=== PATIENT | male | born 1980 | race Two or more races ===

== ENCOUNTER 2024-02-19 | Emergency (ER) | payer MEDICAID, SELFPAY ==
[2024-02-19 00:08] VITALS: BP 144/91; PULSE 98; RESP 18; TEMP 37.1; O2SAT 99
--- NOTE | 2024-02-19 00:09 | XR_ITS ---
Examination: Duplex scan of the lower extremity, unilateral left Date and time of exam: February 19, 2024 0041 hrs. Indications: Left leg pain beginning 3 days ago Technique: Duplex scan of the extremity veins using B-mode/grayscale imaging and Doppler spectral analysis and color flow Attention is directed to internal echogenicity, compression and augmentation involving these veins, color flow assessment, spectral analysis Findings: Major deep venous structures in the extremity demonstrate normal course and caliber. There is no evidence of deep vein thrombosis. Normal color flow and spectral analysis Impression: Negative for DVT..
--- NOTE | 2024-02-19 00:11 | PD.EDEXREM ---
ED Extremity Problem RME/HPI General Chief complaint: General Adult/Misc Complain Stated complaint: LEFT LEG PAIN Time Seen by Provider: 02/19/24 00:09 Arrival date/time: 02/19/24 00:00 43M with history of HTN and SVT (no meds) presents to ED with several days of L leg pain w/o fall/trauma. Patient denies CP and SOB. Limitations: no limitations Related Data Home Medications ?Medication ?Instructions ?Recorded ?Confirmed No Known Home Medications 04/01/21 04/01/21 Allergies Allergy/AdvReac Type Severity Reaction Status Date / Time No Known Allergies Allergy Verified 03/17/23 10:47 Review of Systems Review of Systems Systems Reviewed: All systems reviewed, normal except as documented Constitutional Constitutional: Reports system reviewed and no additional complaints, except as documented, Denies fever(s) and Denies headache(s) ENT Ears, Nose, Mouth, and Throat: Denies disequilibrium and Denies headache(s) Cardiovascular Cardiovascular: Reports system reviewed and no additional complaints, except as documented, Denies chest pain and Denies dyspnea Respiratory Respiratory: Reports system reviewed and no additional complaints, except as documented, Denies cough and Denies dyspnea Gastrointestinal Gastrointestinal: Reports system reviewed and no additional complaints, except as documented, Denies abdominal pain, Denies nausea and Denies vomiting Musculoskeletal Musculoskeletal: Reports as per HPI, Reports arthralgias and Reports radiating pain into limb Neurologic Neurologic: Reports system reviewed and no additional complaints, except as documented, Denies confusion, Denies disequilibrium and Denies headache(s) Psychiatric Psychiatric: Denies confusion Past Medical History Past Medical History CARDIAC: Positive Cardiac Disorders (SVT); Negative Congestive Heart Failure RESPIRATORY: Positive Asthma; Negative Chronic Obstructive Pulmonary Disease (COPD) GASTROINTESTINAL: Positive Gastrointestinal Disorders and Esophageal Varices GENITOURINARY: Negative Renal Disease ENDOCRINE: Negative Diabetes Mellitus Type 1 or Diabetes Mellitus Type 2 Surgical History SURGICAL: Positive Cardiac Surgery (ABLASION) Social History SMOKING STATUS: Never smoker ED Exam General Limitations: Present no limitations General appearance: Present alert and in no apparent distress Head Head exam: Present atraumatic Eye Eye exam: Present normal appearance, PERRL and EOMI ENT ENT exam: Present normal exam, normal oropharynx and mucous membranes moist Neck Neck exam: Present normal inspection, full ROM and trachea midline Chest Chest inspection: Present normal inspection and symmetric chest wall rise Respiratory Respiratory exam: Present normal lung sounds bilaterally Cardiovascular Cardiovascular exam: Present regular rate, normal rhythm and normal heart sounds Abdominal Exam Abdominal exam: Present soft and normal bowel sounds Extremities Exam Extremities exam: Present normal inspection and full ROM Back Exam Back exam: Present normal inspection and full ROM Neurological Exam Neurological exam: Present alert, oriented X3 and CN II-XII intact Psychiatric Psychiatric exam: Present normal affect and normal mood Skin Skin exam: Present warm, dry, intact and normal color Course Quality Measures none Orders Category Date Time Status US venous doppler LE LT Stat Exams 02/19/24 00:09 Taken Gabapentin [Neurontin] Med 02/19/24 03:00 Discontinued 600 mg PO X1 ONE Ketorolac Inj [Toradol Inj] Med 02/19/24 03:00 Discontinued 60 mg IM X1 ONE Vital Signs Vital signs: Vital Signs Temperature 98.7 F 02/19/24 00:08 Pulse Rate 98 02/19/24 00:08 Respiratory Rate 18 02/19/24 00:08 Blood Pressure 144/91 H 02/19/24 00:08 Pulse Oximetry (%) 99 02/19/24 00:08 Oxygen Delivery Method Room Air 02/19/24 00:08 O2 at 99% on RA and WNLs Extremity Problem MDM Narrative MDM Narrative:: 43M with history of HTN and SVT (no meds) presents to ED with several days of L leg pain w/o fall/trauma. Patient denies CP and SOB. Physical exam reveals no obvious swelling of LLE. Skin is not cold. Distal pulses present. Patient has many scars/scratches on all extremities that patient states are from his dogs. No open wound or area of redness. Clear ENT and lungs. Patient is afebrile, calm, and alert. US no DVT. Meds improved symptoms. Likely sciatica. Patient data External records reviewed:: [facility] previous records Clinical information provided by:: patient Social determinants that could affect healthcare access:: none Patient has the following chronic illnesses:: HTN and SVT How is presenting disease/condition affected by chronic disease/condition?: uneffected by Evaluation data The following diagnostics were reviewed and interpreted by me:: radiology exam(s) Lab and/or radiology exams considered but not ordered:: ordered Interpretation Summary: above Medications / Prescriptions Medications or Prescriptions considered but not ordered:: ordered Medication administrations:: Medication Administration History Discontinued Medications Gabapentin (Gabapentin 300 Mg Capsule) 600 mg PO X1 ONE Stop: 02/19/24 03:01 Last Admin: 02/19/24 03:19 Dose: 600 mg Documented By: DAVID Ketorolac Tromethamine (Ketorolac Inj 60 Mg/2 Ml Vial) 60 mg IM X1 ONE Stop: 02/19/24 03:01 Last Admin: 02/19/24 03:19 Dose: 60 mg Documented By: DAVID above Consultations Consultation(s) initiated? (list below): No Diagnosis Extremity Problem Differential Diagnosis: herpes zoster, gout, cellulitis, superficial thrombophlebitis, deep venous thrombosis of upper extremity, lower extremity edema and deep vein thrombosis of lower extremity Most likely diagnosis given after review of the tests above:: sciatica Admission Indicated Admission indicated?: not indicated Admission Request Was there a request for admission?: No Disposition Plan Disposition Plan: Discharge Discharge Attestation Discharge Attestation: The patient and all family members were given an opportunity to ask questions and understood the discharge instructions. Discharge instructions specifically effects, indications for sooner follow up or return to the emergency department, and the expected course of current diagnosis. Patient condition: Stable Discharge Plan Plan Patient Disposition: HOME (Self Care) Disposition Comment: Stable Prescriptions/Referrals Prescriptions/Med Rec: No Action No Known Home Medications Referrals: Temporary Provider,ED [Primary Care Provider] - In 1 week Problem List Clinical Impression: Sciatica Patient/Caregiver Discharge Instructions Education Materials: ED Sciatica Additional Instructions: Please follow-up with PCP within 24-48 hours and return immediately if symptoms worsen. If problem persists, recommend outpatient PT and/or MRI follow-up. In the meantime, rest, use ice/heat, and/or compression. Print Language: Kazakh Stand Alone Forms: Patient Portal Info Letter PATI/LUCIA Supervising Physician PATI/LUCIA Supervising Physician: Dr. Vasquez
[2024-02-19 03:03] VITALS: BMI 31.8
[2024-02-19] MEDS: KETOROLAC INJ 60 MG/2 ML VIAL IM (03:19)
[2024-02-19] MEDS: GABAPENTIN 300 MG CAPSULE 600 MG PO (03:19)
--- NOTE | 2024-02-19 04:35 | PRELIM_ITS ---
Left lower extremity venous Doppler ultrasound. February 19, 2024 0041 hours Clinical history: Rule o ut deep vein thrombosis. Technique: Duplex scan of the left lower extremity deep venous systems was p erformed utilizing 2D grayscale imaging, Doppler spectral analysis and color flow Doppler and with co mpression. Comparison: None.Findings:Pantoja scale, color flow and spectral Doppler evaluation of the le ft lower extremity deep veins was performed.The common femoral, superficial femoral and popliteal vei ns are patent and compressible. Normal respiratory variation and augmentation are noted. The posterio r tibial and peroneal veins are patent to the extent visualized. There is no evidence of occlusive or nonocclusive thrombus. The great saphenous vein is patent and compressible at the level of the saphe nofemoral junction. Impression:No sonographic evidence of deep venous thrombosis in the left lower ex tremity. Report Electronically Signed By: Victor Hugo Stephens 02/19/2024 4:34:56 AM [EST]
== END 2024-02-19 04:41 | disposition home or self-care (01) ==
LOC: SERX 06:57
PROVIDERS: Emergency Provider Emergency Medicine; PCP Family Medicine
DX: M54.32 Sciatica, left side (principal)
CPT/HCPCS: 93971; 96372; 99284; J1885; A9270

== ENCOUNTER 2024-08-07 20:26 | Emergency (ER) | payer MEDICAID, SELFPAY ==
[2024-08-07 20:28] VITALS: BMI 33.2
--- NOTE | 2024-08-07 20:31 | EKG_ITS ---
[facility] Test Date: 2024-08-07 Pat Name: YOVANI PARKINSON Department: Room: - Gender: Male [employer]: : 1980 Requested By: ED Temporary Provider Order Number: [id number] Reading MD: ED Temporary Provider Measurements Intervals [place] Rate: 77 P: 66 MO: 174 QRS: 38 QRSD: 95 T: 44 QT: 381 QTc: 433 Interpretive Statements SINUS RHYTHM POSSIBLE LEFT ATRIAL ENLARGEMENT [-0.1mV P-WAVE IN V1/V2] Compared to ECG 03/17/2023 11:33:06 Myocardial infarct finding no longer present /store/[id number]/[id number].pdf
--- NOTE | 2024-08-07 20:39 | PD.EDCHEST ---
ED Chest Pain RME/HPI General Chief Complaint: Chest Pain Stated Complaint: CHEST THIGHTNESS, PALPITATIONS Time Seen by Provider: 08/07/24 20:34 Arrival date/time: 08/07/24 20:26 RME / HPI RME / HPI narrative: Dr. Vasquez?s Main ED Evaluation: 43yo male presents to the ED for complaints of dizziness, palpitations, and chest heaviness. 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 He states he developed palpitations and chest heaviness that initially subsided, but returned, so he came in for evaluation. Patient drank water and took aspirin without any alleviation of symptoms. Patient denies any shortness of breath, cough, fever, chills or any other associated symptoms. NKA. Patient reports having an ablation in the past due to having recurrent episodes of SVT. Related Data Home Medications ?Medication ?Instructions ?Recorded ?Confirmed No Known Home Medications 04/01/21 04/01/21 Allergies Allergy/AdvReac Type Severity Reaction Status Date / Time No Known Allergies Allergy Verified 08/07/24 20:28 Review of Systems Review of Systems Systems Reviewed: All systems reviewed, normal except as documented Past Medical History Past Medical History CARDIAC: Positive Cardiac Disorders (SVT); Negative Congestive Heart Failure RESPIRATORY: Positive Asthma; Negative Chronic Obstructive Pulmonary Disease (COPD) GASTROINTESTINAL: Positive Gastrointestinal Disorders and Esophageal Varices GENITOURINARY: Negative Renal Disease ENDOCRINE: Negative Diabetes Mellitus Type 1 or Diabetes Mellitus Type 2 Surgical History SURGICAL: Positive Cardiac Surgery (ABLASION) Social History SMOKING STATUS: Former smoker ED Exam Narrative Physical exam: GENERAL APPEARANCE: alert and oriented x 4, well-developed, well-nourished, no acute distress VITALS: All vitals were reviewed and the pulse ox is % on room air, which is normal according to my interpretation. HEENT: Normocephalic, atraumatic; pupils equal, round, reactive to light; EOMI; mucous membranes pink, moist; oropharynx clear NECK: Supple LUNGS: CTABL; no wheezes, no rales, no rhonchi HEART: Regular rate, regular rhythm; normal S1, S2; no murmurs ABDOMEN: non distended; normal BS; soft, no tenderness, no guarding, no rebound; no masses, no organomegaly, no hernia BACK: no CVA tenderness EXTREMITIES: atraumatic; no edema NEUROLOGIC: awake; alert and oriented x4; cranial nerves II-XII grossly intact; no focal sensory or motor deficits PSYCHIATRIC: appropriate mood and affect SKIN: warm, dry, normal color; no rashes Course Course Course Narrative: CXR is ordered for determining the etiology of chest pain. Quality Measures none Orders Category Date Time Status Parenting Skills Instructor STAT Care 08/07/24 20:40 Completed Continuous Pulse Oximetry ONCE Care 08/07/24 20:40 Completed EKG (ED ONLY) *Do not use* NOW Care 08/07/24 20:31 Completed Insert IV STAT Care 08/07/24 20:40 Completed EKG (ED Only) Stat Exams 08/07/24 20:31 Draft XR chest 1V portable Stat Exams 08/07/24 20:40 Completed B-Type Natriuretic Peptide Stat Lab 08/07/24 21:04 Completed CBC Stat Lab 08/07/24 21:04 Completed Comprehensive Metabolic Panel Stat Lab 08/07/24 21:04 Completed Drug Screen,Urine Stat Lab 08/07/24 21:04 Completed Magnesium Stat Lab 08/07/24 21:04 Completed Prothrombin Time with INR Stat Lab 08/07/24 21:04 Completed Troponin I Stat Lab 08/07/24 21:04 Completed Urinalysis, C/S if Indicated Stat Lab 08/07/24 21:04 Completed Sodium Chloride 0.9% 1000 ml [Ns] 1,000 ml Med 08/07/24 20:40 Discontinued IV 999 mls/hr Vital Signs Vital signs: Vital Signs Temperature 98.6 F 08/07/24 20:51 Pulse Rate 76 08/07/24 20:51 Respiratory Rate 14 08/07/24 20:51 Blood Pressure 144/97 H 08/07/24 20:51 Pulse Oximetry (%) 99 08/07/24 20:51 Oxygen Delivery Method Room Air 08/07/24 20:51 Chest Pain MDM Narrative MDM Narrative:: Scribe Attestation: 08/07/24 Chantal Anton am scribing for and in the presence of Dr. Vasquez. Patient data External records reviewed:: [facility] previous records (Per chart review, patient was seen here on 04/01/21 for palpitations.) Clinical information provided by:: patient Social determinants that could affect healthcare access:: none Patient has the following chronic illnesses:: asthma How is presenting disease/condition affected by chronic disease/condition?: uneffected by Evaluation data The following diagnostics were reviewed and interpreted by me:: lab results, radiology exam(s) and EKG tracing(s) Lab and/or radiology exams considered but not ordered:: none Interpretation Summary: CBC is normal, PT and INR are normal, CMP is normal, Troponin is normal, BNP is normal, UA is unremarkable, UDS is negative, according to my interpretation. EKG done at 2040, NSR, rate of 77, normal axis, no ectopy, no acute ischemia, according to my interpretation. --------- [facility] Report Signed Patient: YOVANI PARKINSON [facility]. Record#: [id number] Birthdate: 1980 Age/Sex: 43 / M Location: [facility] Attending Dr: Ordering Physician: Nitish Vasquez MD Date of Service: 08/07/24 Procedure(s): XR chest 1V portable Accession Number(s): [id number] cc: Javy Guerrero MD; Micheal Nicholas MD; Nitish Vasquez MD~ Examination: AP chest single view TECHNIQUE: AP portable chest single view Date and time: August 07, 20242113 hours Comparison March 17, 2023. INDICATIONS: Dizziness cardiac palpitations chest heaviness today FINDINGS: Normal heart size. Lungs are clear. The osseous structures are intact IMPRESSION: No active disease Dictated By: Micheal Nicholas MD Signed By: <Electronically signed by Micheal Nicholas MD in OV> 08/07/242121 Medications / Prescriptions Medications or Prescriptions considered but not ordered:: none Medication administrations:: Medication Administration History Discontinued Medications Sodium Chloride (Ns) 1,000 mls @ 999 mls/hr IV .Q1H1M ONE Stop: 08/07/24 21:40 Last Infusion: 08/07/24 22:01 Dose: Infused Documented By: Admin: 08/07/24 21:00 Dose: 999 mls/hr Documented By: EF see above Consultations Consultation(s) initiated? (list below): No Diagnosis Chest Pain Differential Diagnosis: other (SVT, rapid aFib, PAT, Vtach with a pulse) Most likely diagnosis given after review of the tests above:: Palpitations Admission Indicated Admission indicated?: not indicated Admission Request Was there a request for admission?: No Disposition Plan Disposition Plan: Discharge Discharge Attestation Discharge Attestation: The patient and all family members were given an opportunity to ask questions and understood the discharge instructions. Discharge instructions specifically effects, indications for sooner follow up or return to the emergency department, and the expected course of current diagnosis. Patient condition: Stable Discharge Plan Plan Patient Disposition: HOME (Self Care) Discharge Disposition comment: Stable for discharge Patient condition on transfer: Stable Prescriptions/Referrals Prescriptions/Med Rec: No Action No Known Home Medications Referrals: Toni Spears MD [Physician] - In 1 week Javy Guerrero MD [Primary Care Provider] - In 1 week Problem List Clinical Impression: Heart palpitations Patient/Caregiver Discharge Instructions Discharge Activity: activity as tolerated Education Materials: ED Palpitations Additional Instructions: Please return to the emergency department if you have any worsening or any further medical problems. Otherwise you should follow-up with your primary care doctor within the next several days. I have given you the contact information for Dr. Spears. He is our television announcer who is on-call for the ER today. Please give his office a call and make a follow-up appointment with him. Print Language: Jamaican Stand Alone Forms: Martha Award Info., Patient Portal Info Letter
[2024-08-07 20:40] VITALS: PULSE 112
--- NOTE | 2024-08-07 20:40 | XR_ITS ---
Examination: AP chest single view TECHNIQUE: AP portable chest single view Date and time: August 07, 2024 2114 hours Comparison March 17, 2023. INDICATIONS: Dizziness cardiac palpitations chest heaviness today FINDINGS: Normal heart size. Lungs are clear. The osseous structures are intact IMPRESSION: No active disease
[2024-08-07 20:51] VITALS: BP 144/97; PULSE 76; PULSE 78; RESP 14; TEMP 37; O2SAT 99
[2024-08-07] MEDS: SODIUM CHLORIDE 0.9% 1000 ML 1,000 ML 999 ML IV (21:00)
[2024-08-07 21:10] LABS: Basophils # (Auto) 0.1 Thou/mm3 (0.0-0.2); Basophils % (Auto) 1 % (0-2.5); Eosinophils # (Auto) 0.2 Thou/mm3 (0.0-0.5); Eosinophils % (Auto) 2 % (0-10); Hemoglobin 15.6 g/dL (13.5-16.0); Immature Granulocytes % (Auto) 0 % (0-0); Immature Granulocytes Auto 0.03 Thou/mm3 (0.00-0.00); Lymphocytes # (Auto) 3.1 Thou/mm3 (1.0-4.8); Lymphocytes % (Auto) 33 % (10-50); Mean Corpuscular HGB Conc 35.5 g/dl (31.0-37.0); Mean Corpuscular Hemoglobin 29.2 pg (25.0-35.0); Mean Corpuscular Volume 82 fL (80-100); Monocytes # (Auto) 0.6 Thou/mm3 (0.0-0.8); Monocytes % (Auto) 7 % (0-12); Neutrophils # (Auto) 5.5 Thou/mm3 (1.8-7.7); Neutrophils % (Auto) 58 % (37-80); Nucleated Red Blood Cell % 0 /100 WBC (0); Platelet Count 261 Thou/mm3 (140-440); RDW Standard Deviation 36.1 fL (35.1-43.9); Red Blood Count 5.34 Miln/mm3 (4.50-5.90); White Blood Count 9.4 Thou/mm3 (3.8-10.6)
[2024-08-07 21:11] LABS: Collection Type, Urine Clean Catch; Squamous Epithelial Cell,Urine 0 /hpf (0-5)
[2024-08-07 21:14] LABS: Bilirubin,Urine Negative (Negative); Blood,Urine Negative (Negative); Clarity,Urine Clear (Clear/Hazy); Color,Urine Lt-Yellow (Lt Yel-Yel); Culture Indicated,Urine Not Indicated; Glucose, Urine Negative (Negative); Ketones,Urine 1+ (Negative); Leukocyte Esterase,Urine Negative (Negative); Nitrite,Urine Negative (Negative); Protein,Urine Trace (Neg - Trace); RBC,Urine 3 /hpf (0-3); Specific Gravity,Urine 1.028 (1.001-1.035); Urobilinogen,Urine Negative mg/dL (0.0-1.0); WBC,Urine 1 /hpf (0-5)
[2024-08-07 21:27] LABS: Amphetamine/Methamp Scrn,U Negative (Negative); Barbiturate Screen,Urine Negative (Negative); Benzodiazepines Screen,Urine Negative (Negative); Benzoylecgonine Screen, Ur Negative (Negative); Fentanyl Screen,Urine Negative (Negative); Opiate Screen,Urine Negative (Negative); Prothrombin Time 10.9 Seconds (9.0-12.2); THC Screen,Urine Negative (Negative)
[2024-08-07 21:31] LABS: Alanine Aminotransferase 24 U/L (10-49); Albumin, Serum 4.6 gm/dL (3.5-5.0); Albumin/Globulin Ratio 1.6 (1.2-2.2); Alkaline Phosphatase 87 U/L (46-116); Anion Gap 5 (7-16); Aspartate Amino Transferase 25 U/L (0-34); BUN/Creatinine Ratio 11 Ratio (12-20); Bilirubin,Total 0.5 mg/dL (0.3-1.2); Blood Urea Nitrogen 13 mg/dL (9-23); Calcium 9.5 mg/dL (8.3-10.6); Calcium (Corrected) 9.5 mg/dL (8.5-10.1); Carbon Dioxide 28.4 mMol/L (20.0-31.0); Chloride 102 mMol/L (98-107); Creatinine (Component) 1.2 mg/dL (0.6-1.3); Estimated Creatinine Clearance 102.2 mL/min (>60); Globulin 2.9 gm/dL (2.3-3.5); Glucose 92 mg/dL (74-106); Magnesium 2.3 mg/dL (1.6-2.6); Osmolality,Calculated 270 (275-295); Potassium 4.1 mMol/L (3.4-5.1); Sodium 135 mMol/L (136-145); Total Protein 7.5 gm/dL (5.7-8.2); Troponin I < 0.020 ng/mL (0.0-0.045); eGFR > 60 See Note
[2024-08-07 22:12] LABS: B-Type Natriuretic Peptide 25 pg/mL (0-100)
[2024-08-07 22:31] VITALS: BP 130/83; PULSE 97; RESP 17; O2SAT 97
== END 2024-08-07 22:33 | disposition home or self-care (01) ==
PROVIDERS: Emergency Provider Emergency Medicine; PCP Family Medicine
DX: R00.2 Palpitations (principal); R42 Dizziness and giddiness
CPT/HCPCS: 36415; 71045; 80053; 80307; 81001; 83735; 83880; 84484; 85025; 85610; 93005; 96360; 99284; J7030

== ENCOUNTER 2025-03-10 21:00 | Emergency (ER) | payer MEDICAID, SELFPAY ==
[2025-03-10 21:01] VITALS: BMI 29.8
[2025-03-10 21:02] VITALS: BP 125/80; PULSE 87; RESP 18; TEMP 36.9; O2SAT 98
--- NOTE | 2025-03-10 22:20 | PD.EDSKIN ---
ED Skin Abcess FB-RME/HPI General Chief complaint: Extremity Injury, Lower Stated complaint: POSS INFECTION L LOWER LEG Time Seen by Provider: 03/10/25 22:10 Arrival date/time: 03/10/25 21:00 44M with asthma and cardiac ablation presents to ED with several days of L lower leg burning pain. Patient denies itching, fall/trauma, and obvious insect bite/puncture wound/skin injury. Limitations: no limitations Related Data Previous Rx's ?Medication ?Instructions ?Recorded cefadroxil 1 gram tablet 1,000 mg PO QDAY 7 days #7 tabs 03/10/25 Allergies Allergy/AdvReac Type Severity Reaction Status Date / Time No Known Allergies Allergy Verified 08/07/24 20:28 Review of Systems Review of Systems Systems Reviewed: All systems reviewed, normal except as documented Integumentary/Breasts Skin/Breast: Reports as per HPI, Reports rash and Reports skin pain Past Medical History Past Medical History CARDIAC: Positive Cardiac Disorders (SVT); Negative Congestive Heart Failure RESPIRATORY: Positive Asthma; Negative Chronic Obstructive Pulmonary Disease (COPD) GASTROINTESTINAL: Positive Gastrointestinal Disorders and Esophageal Varices GENITOURINARY: Negative Renal Disease ENDOCRINE: Negative Diabetes Mellitus Type 1 or Diabetes Mellitus Type 2 Surgical History SURGICAL: Positive Cardiac Surgery (ABLASION) Social History SMOKING STATUS: Never smoker ED Exam General Limitations: Present no limitations General appearance: Present alert and in no apparent distress Head Head exam: Present atraumatic Neck Neck exam: Present normal inspection, full ROM and trachea midline Chest Chest inspection: Present normal inspection and symmetric chest wall rise Extremities Exam Extremities exam: Present full ROM Expanded Lower Extremity Exam Lower leg exam: Present full ROM (L), tenderness, swelling and erythema Neurological Exam Neurological exam: Present alert and oriented X3 Psychiatric Psychiatric exam: Present normal affect and normal mood Skin Skin exam: Present warm, dry, intact and normal color Course Quality Measures none Vital Signs Vital signs: Vital Signs Temperature 98.4 F 03/10/25 21:02 Pulse Rate 87 03/10/25 21:02 Respiratory Rate 18 03/10/25 21:02 Blood Pressure 125/80 03/10/25 21:02 Pulse Oximetry (%) 98 03/10/25 21:02 Oxygen Delivery Method Room Air 03/10/25 21:02 O2 at 98% on RA and WNLs Skin / Abscess / Foreign Body MDM Narrative MDM Narrative:: 44M with asthma and cardiac ablation presents to ED with several days of L lower leg burning pain. Patient denies itching, fall/trauma, and obvious insect bite/puncture wound/skin injury. Physical exam reveals L pretibial area of redness, tenderness, and some discrete bumps. Other tibia normal. Patient is afeberile, calm, and alert. Will trial a course of ABX, but suspicion of cellulitis not very high. Counseled to follow-up with PCP if no improvement. Rash does not look like that associated with endocarditis or thyroid disease. Possibly auto-immune. Patient data External records reviewed:: [facility] previous records Clinical information provided by:: patient Social determinants that could affect healthcare access:: none Patient has the following chronic illnesses:: asthma and cardiac ablation How is presenting disease/condition affected by chronic disease/condition?: uneffected by Evaluation data The following diagnostics were reviewed and interpreted by me:: other (specify) (none) Lab and/or radiology exams considered but not ordered:: not ordered Interpretation Summary: n/a Medications / Prescriptions Medications or Prescriptions considered but not ordered:: not ordered Medication administrations:: n/a Consultations Consultation(s) initiated? (list below): No Diagnosis Skin/Abscess Differential Diagnosis: abscess of skin or subcutaneous tissue, viral exanthem, dermatophytosis, urticaria, herpes zoster, allergic reaction to drug, cellulitis, eczema, insect bites, impetigo, contact dermatitis and other (swelling of skin) Most likely diagnosis given after review of the tests above:: swelling of skin Admission Indicated Admission indicated?: not indicated Admission Request Was there a request for admission?: No Disposition Plan Disposition Plan: Discharge Discharge Attestation Discharge Attestation: The patient and all family members were given an opportunity to ask questions and understood the discharge instructions. Discharge instructions specifically effects, indications for sooner follow up or return to the emergency department, and the expected course of current diagnosis. Patient condition: Stable Discharge Plan Plan Patient Disposition: HOME (Self Care) Discharge Disposition comment: Stable Prescriptions/Referrals Prescriptions/Med Rec: New cefadroxil 1 gram tablet 1,000 mg PO QDAY 7 Days Qty: 7 0RF Problem List Clinical Impression: Swelling of skin Patient/Caregiver Discharge Instructions Education Materials: ED Cellulitis Additional Instructions: Please follow-up with PCP within 24-48 hours and return immediately if symptoms worsen. Follow-up with PCP if no improvement after ABX. Print Language: Danish Stand Alone Forms: Patient Portal Info Letter PA/NETWORK INTELLIGENCE ANALYST Supervising Physician PA/NETWORK INTELLIGENCE ANALYST Supervising Physician: Dr. Mccann
== END 2025-03-10 22:41 | disposition home or self-care (01) ==
LOC: SERX 22:17
PROVIDERS: Emergency Provider Emergency Medicine; PCP Family Medicine
DX: R22.42 Localized swelling, mass and lump, left lower limb (principal)
CPT/HCPCS: 99281